=== PATIENT | female | born 1945 | race Caucasian/White ===

== ENCOUNTER 2020-06-02 05:26 | Day surgery (SDC) | payer MEDICARE, OTHER ==
[2020-06-02] MEDS ORDERED: PROPOFOL 200 MG/20 ML VIAL IV ONE (05:27)
[2020-06-02] MEDS ORDERED: LIDOCAINE 1% 10 ML VIAL INJ ONE (05:27)
[2020-06-02] MEDS ORDERED: LACTATED RINGERS 1,000 ML ONE (09:02)
[2020-06-02] MEDS ORDERED: LACTATED RINGERS 1,000 ML IVS ONE (09:10)
[2020-06-02] MEDS ORDERED: fentaNYL CITRATE INJ 50 MCG/ML 2 ML AMP ONE (09:42)
[2020-06-02] MEDS ORDERED: LACTATED RINGERS 600 ML IVS ONE (10:12)
--- NOTE | 2020-06-02 10:48 | OP ---
DATE OF PROCEDURE: 06/02/20 PREOPERATIVE DIAGNOSIS: 1. Older lady with now inability to swallow pills and take adequate p.o. intake. POSTOPERATIVE DIAGNOSIS: 1. Older lady with now inability to swallow pills and take adequate p.o. intake. PROCEDURE: 1. Placement of PEG tube with EGD. SURGEON: Christopher Kirby MD ANESTHESIA: Alex Dixon CRNA, general anesthesia. FINDINGS: No evidence of gastritis or ulcers. The PEG was placed in routine fashion. COMPLICATIONS: None. PLAN: Discharge. INDICATION: As stated. PROCEDURE: IV general anesthesia was induced. She had a bite block in place. The scope was passed routinely down into the stomach. We identified light reflex and on pressure from the anterior wall of the stomach easily due to the depression we then used local and made an incision and placed in the angiocatheter. We then introduced the loop through the scope and the wire through the angiocatheter, then removing the scope after grabbing the wire to bring it out, attaching it to the PEG and then carefully advancing the PEG through the wound with no problems. The EGD was then replaced normally and saw the PEG in good position with too much compression against the anterior wall of the stomach. The remainder of the EGD at that time was normal with no evidence of ulcer, stricture, etc. The scope was removed. She tolerated the procedure and was taken to Recovery to be discharged. #[id number] cc: Yue Whiteside [facility]
[2020-06-02] MEDS ORDERED: ONDANSETRON ODT 8 MG TAB ONE (11:24)
[2020-06-02 11:27] VITALS: BP 154/79; TEMP 99.1; O2SAT 95
[2020-06-02] MEDS ORDERED: IBUPROFEN SUSP 100 MG/5 ML UD ONE (11:40)
== END 2020-06-02 12:25 | disposition home or self-care (01) ==
LOC: AMB 05:26
PROVIDERS: ATTEND Surgery
DX: R13.19 Other dysphagia (principal); G40.909 Epilepsy, unspecified, not intractable, without status epilepticus; Z85.3 Personal history of malignant neoplasm of breast; Z88.6 Allergy status to analgesic agent; Z88.0 Allergy status to penicillin; Z79.899 Other long term (current) drug therapy
CPT/HCPCS: 00731; 43246; J3010; J3490; J7120

== ENCOUNTER → 2020-08-21 | Outpatient (CLI) | payer MEDICARE, OTHER ==
--- NOTE | 2020-08-22 09:55 | US ---
EXAM DESCRIPTION: Breast,Left: Ultrasound. CLINICAL HISTORY: 75 yearsFemaleBREAST LUMP. Previous left breast cancer. Lump in the region of biopsy site and treatment site. COMPARISON: None. TECHNIQUE: Transcutaneous scanning of the left breast utilizing hudson-scale and Doppler modes. Scanning performed by the inspector repairer ; observation by Dr. Zamudio. Digital mammography and tomosynthesis could not be performed due to the patient's physical condition. FINDINGS: Inhomogeneous hypoechoic mass with small inferior extension. Wider than tall orientation with posterior acoustic shadowing. Dimensions are 1.4 x 0.7 x 1.1 cm. No fluid collection, no large calcifications. Incision site overlying the region of interest. IMPRESSION: BI-RADS Category 4: SUSPICIOUS. Sub-category 4A - Low Suspicion For Malignancy. RECOMMENDATION: Surgical consultation and tissue diagnosis if there are no clinical contraindications. The FINDINGS and FOLLOW-UP plan were reviewed in person with the patient following the examination. Written communication explaining the IMPRESSION and FOLLOW-UP will be mailed to the patient and referring care provider. CRITICAL COMMUNICATION: The critical value was communicated directly by Dr. Zamudio via phone call, with Ms. Marilu Obrien RN, power hammer operator at the [facility] where Ms. Winston resides, at approximately 1545 hours, on August 21, 2020. Dr. Kirby's office was notified of the findings at approximately the same time. Electronically signed by: Fran Zamudio MD 08/22/2020 9:54 AM [facility]
== END ==
LOC: US 14:56
PROVIDERS: ATTEND Emergency Medicine
DX: R92.8 Other abnormal and inconclusive findings on diagnostic imaging of breast (principal)

== ENCOUNTER → 2020-09-19 | Outpatient (CLI) | payer MEDICARE, OTHER | LOC: LAB.O 17:09 | PROVIDERS: ATTEND Surgery | DX: N63.20 Unspecified lump in the left breast, unspecified quadrant (principal) ==